=== PATIENT | female | born 1970 | race Caucasian/White ===

== ENCOUNTER 2022-01-12 08:43 | Emergency (ER) | payer MEDICAID ==
[~2022-01-12] VITALS: Ht 157.5 cm; Wt 52.0 kg
[2022-01-12 08:50] VITALS: BP 178/87
[2022-01-12] MEDS ORDERED: NAPR-1176 PO (09:41)
[2022-01-12] MEDS ORDERED: CYCL5TAB MT (09:41)
== END 2022-01-12 09:54 | disposition home or self-care (01) ==
LOC: ER 08:43
DX: S46.911A Strain of unspecified muscle, fascia and tendon at shoulder and upper arm level, right arm, initial encounter (principal); X58.XXXA Exposure to other specified factors, initial encounter; Y93.89 Activity, other specified; Y92.89 Other specified places as the place of occurrence of the external cause; Y99.8 Other external cause status
CPT/HCPCS: 81025; 99282

== ENCOUNTER 2023-04-30 04:51 | Inpatient (IN) | payer MEDICAID ==
[~2023-04-30] VITALS: Ht 154.9 cm; Wt 47.6 kg
[~2023-04-30 04:51] MED LIST: CYCL5TAB MT; NAPR-1176 PO
[2023-04-30 06:29] LABS: HEMATOCRIT. 39.4 % (36.0-48.0); HEMOGLOBIN. 13.2 g/dL (12.0-16.0); MEAN CORPUSCULAR HEMOGLOBIN 27.4 pg (28.0-32.0); MEAN CORPUSCULAR HGB CONC 33.5 g/dL (31.0-37.0); MEAN CORPUSCULAR VOLUME 81.6 fL (81.0-99.0); MEAN PLATELET VOLUME 7.9 fl (7.4-10.4); PLATELET 391 x1000/uL (130-400); RED BLOOD CELL COUNT 4.83 mill/uL (4.2-5.4); WHITE BLOOD COUNT 18.3 x1000/uL (4.5-11.0)
[2023-04-30] MEDS ORDERED: ONDANSETRON HCL 4MG/2ML INJ IV ONE (06:30)
[2023-04-30] MEDS ORDERED: SODIUM CHLORIDE 0.9% 1,000 ML IV ONE (06:30)
[2023-04-30] MEDS ORDERED: MORPHINE SULFATE 4 MG/ML CPJ (NOT FOR IM USE) IV ONE (06:30)
[2023-04-30 06:31] LABS: DIFFERENTIAL COMMENT 1
[2023-04-30 06:41] LABS: ALANINE AMINOTRANSFERASE 45 IU/L (10-49); ALBUMIN 4.3 g/dL (3.2-4.8); ASPARTATE AMINOTRANSFERASE 43 IU/L (<34); BILIRUBIN TOTAL 0.8 mg/dL (0.1-1.0); CALCIUM 9.1 mg/dL (8.7-10.4); CARBON DIOXIDE 21 mEq/L (21-32); CHLORIDE 102 mEq/L (98-107); CREATININE 0.8 mg/dL (0.6-1.0); GLUCOSE 109 mg/dL (70-105); POTASSIUM 3.1 mEq/L (3.5-5.1); PROTEIN TOTAL 7.7 g/dL (6.0-8.3); SODIUM 138 mEq/L (136-145); UREA NITROGEN BLOOD 16 mg/dL (9-23)
[2023-04-30 07:05] LABS: PARTIAL THROMBOPLASTIN TIME 25.9 sec (23.4-31.0); PROTHROMBIN TIME 10.7 sec (9.6-11.0)
[2023-04-30 07:46] LABS: PLATELET ESTIMATE NORMAL
[2023-04-30 07:48] LABS: LACTIC ACID 4.5 mmol/L (0.4-2.0)
[2023-04-30] MEDS ORDERED: PIPERACILLIN/TAZO 3.375G/50ML 50 ML IV SCH ×2 (08:00→14:00)
[2023-04-30] MEDS ORDERED: SODIUM CHLORIDE 0.9% 1,000 ML IV SCH (08:00)
[2023-04-30] MEDS ORDERED: KCL 20MEQ/100ML PREMIX 100 ML IV SCH (08:00)
[2023-04-30] MEDS ORDERED: IOHEXOL-300 100 ML BOTTLE ONE (11:28)
[2023-04-30] MEDS ORDERED: ONDANSETRON HCL 4MG/2ML INJ IV PRN (13:00)
[2023-04-30] MEDS ORDERED: KETOROLAC 15MG/ML VIAL IV PRN (13:00)
[2023-04-30] MEDS ORDERED: DEXT 5%/0.45% NACL KCL 10MEQ/L 1,000 ML IV SCH (13:30)
[2023-04-30 14:30] VITALS: BP 101/57; PULSE 112; RESP 18; TEMP 99.9
[2023-04-30] MEDS: PANTOPRAZOLE SODIUM 40 MG/VIAL IV SCH (16:21)
[2023-04-30] MEDS: ACETAMINOPHEN 650MG SUPP PR PRN ×2 (16:50→17:20)
[2023-04-30] MEDS: MIDODRINE HCL 5MG TABLET PO SCH (18:13)
[2023-04-30 20:00] VITALS: BP 70/34; PULSE 65; RESP 18; TEMP 97.9
[2023-04-30] MEDS ORDERED: SODIUM CHLORIDE 0.9% 1000ML BAG (SEPSIS BOLUS) IV ONE (20:45)
[2023-04-30] MEDS ORDERED: SODIUM CHLORIDE 0.9% 500 ML IV SCH (21:00)
[2023-04-30] MEDS: PIPERACILLIN/TAZO 3.375G/50ML 50 ML IV SCH (22:53)
[2023-05-01] VITALS (8 sets, daily range): BP systolic 71–118; BP diastolic 32–66; PULSE 56–93; RESP 16–18; TEMP 97.5–101.1
[2023-05-01 03:28] LABS: CLARITY URINE CLEAR (CLEAR); COLOR URINE YELLOW (YELLOW); GLUCOSE URINE NEGATIVE (NEGATIVE); KETONES URINE NEGATIVE (NEGATIVE); LEUKOCYTE ESTERASE URINE 2+ (NEGATIVE); NITRITE URINE NEGATIVE (NEGATIVE); OCCULT BLOOD URINE NEGATIVE (NEGATIVE); PROTEIN URINE TRACE (NEGATIVE); SPECIFIC GRAVITY URINE 1.021 (1.005-1.030); UROBILINOGEN URINE 0.2 E.U./dL (0.2-1.0)
[2023-05-01 04:36] LABS: WBC URINE 15-25 /hpf (0-2)
[2023-05-01 04:37] LABS: RBC URINE 0-2 /hpf (0-2)
[2023-05-01 04:38] LABS: BACTERIA URINE NONE SEEN; SQUAMOUS EPITHELIAL CELL URINE FEW /lpf (RARE/1+)
[2023-05-01] MEDS: DEXT 5%/0.45% NACL KCL 10MEQ/L 1,000 ML IV SCH ×2 (05:56→21:39)
[2023-05-01] MEDS: PIPERACILLIN/TAZO 3.375G/50ML 50 ML IV SCH ×3 (05:57→21:33)
[2023-05-01 08:10] LABS: HEMATOCRIT. 31.8 % (36.0-48.0); HEMOGLOBIN. 10.7 g/dL (12.0-16.0); MEAN CORPUSCULAR HGB CONC 33.5 g/dL (31.0-37.0); MEAN CORPUSCULAR VOLUME 80.5 fL (81.0-99.0); MEAN PLATELET VOLUME 8.4 fl (7.4-10.4); PLATELET 273 x1000/uL (130-400); RED BLOOD CELL COUNT 3.95 mill/uL (4.2-5.4); RED CELL DISTRIBUTION WIDTH 13.7 % (11.6-14.6); WHITE BLOOD COUNT 19.4 x1000/uL (4.5-11.0)
[2023-05-01 08:11] LABS: ALANINE AMINOTRANSFERASE 32 IU/L (10-49); ALBUMIN 3.1 g/dL (3.2-4.8); ASPARTATE AMINOTRANSFERASE 37 IU/L (<34); CALCIUM 7.2 mg/dL (8.7-10.4); CARBON DIOXIDE 21 mEq/L (21-32); CHLORIDE 109 mEq/L (98-107); CHOLESTEROL 111 mg/dL (<200); CREATININE 0.7 mg/dL (0.6-1.0); GLUCOSE 96 mg/dL (70-105); HDL CHOLESTEROL 25 mg/dL (>65); LDL CHOLESTEROL 65 mg/dL (5-100); POTASSIUM 2.9 mEq/L (3.5-5.1); SODIUM 140 mEq/L (136-145); TRIGLYCERIDE 129 mg/dL (0-150); UREA NITROGEN BLOOD 15 mg/dL (9-23)
[2023-05-01 08:27] LABS: DIFFERENTIAL COMMENT 1
[2023-05-01 08:45] LABS: PROTEIN TOTAL 5.4 g/dL (6.0-8.3)
[2023-05-01] MEDS: ACETAMINOPHEN 650MG SUPP PR PRN (09:06)
[2023-05-01] MEDS: PANTOPRAZOLE SODIUM 40 MG/VIAL IV SCH (09:07)
[2023-05-01] MEDS: MIDODRINE HCL 5MG TABLET PO SCH ×3 (09:08→17:00)
[2023-05-01] MEDS ORDERED: VANCOMYCIN 1G PREMIX 200 ML IV SCH (14:00)
[2023-05-01 20:31] LABS: PLATELET ESTIMATE NORMAL
[2023-05-02] VITALS: BP 113/55; PULSE 61; RESP 16; TEMP 97.3
[2023-05-02 04:00] VITALS: BP 107/47; PULSE 66; RESP 16; TEMP 97.6
[2023-05-02] MEDS: VANCOMYCIN 750MG PREMIX 150 ML IV SCH ×2 (04:32→17:23)
[2023-05-02] MEDS: DEXT 5%/0.45% NACL KCL 10MEQ/L 1,000 ML IV SCH ×2 (04:37→21:19)
[2023-05-02 06:25] LABS: BASOPHILS % 0.2 % (0.0-2.0); HEMATOCRIT. 31.7 % (36.0-48.0); HEMOGLOBIN. 10.8 g/dL (12.0-16.0); LYMPHOCYTES % 7.8 % (20.0-50.0); MEAN CORPUSCULAR HEMOGLOBIN 27.4 pg (28.0-32.0); MEAN CORPUSCULAR HGB CONC 33.9 g/dL (31.0-37.0); MEAN CORPUSCULAR VOLUME 80.9 fL (81.0-99.0); MEAN PLATELET VOLUME 8.4 fl (7.4-10.4); MONOCYTES % 4.3 % (2.0-8.0); NEUTROPHILS % 85.7 % (40.0-76.0); PLATELET 251 x1000/uL (130-400); RED BLOOD CELL COUNT 3.92 mill/uL (4.2-5.4); RED CELL DISTRIBUTION WIDTH 13.5 % (11.6-14.6); WHITE BLOOD COUNT 9.5 x1000/uL (4.5-11.0)
[2023-05-02 06:59] LABS: ALANINE AMINOTRANSFERASE 28 IU/L (10-49); ALBUMIN 3.3 g/dL (3.2-4.8); ASPARTATE AMINOTRANSFERASE 32 IU/L (<34); BILIRUBIN TOTAL 0.6 mg/dL (0.1-1.0); CALCIUM 7.7 mg/dL (8.7-10.4); CARBON DIOXIDE 21 mEq/L (21-32); CHLORIDE 111 mEq/L (98-107); CREATININE 0.7 mg/dL (0.6-1.0); GLUCOSE 94 mg/dL (70-105); SODIUM 142 mEq/L (136-145); UREA NITROGEN BLOOD 12 mg/dL (9-23)
[2023-05-02 08:00] VITALS: BP 126/70; PULSE 63; RESP 20; TEMP 98.8
[2023-05-02] MEDS: PIPERACILLIN/TAZO 3.375G/50ML 50 ML IV SCH ×3 (08:08→21:13)
[2023-05-02] MEDS: MIDODRINE HCL 5MG TABLET PO SCH ×3 (08:44→17:00)
[2023-05-02] MEDS: FAMOTIDINE 20MG/2ML VIAL IV SCH ×2 (08:44→21:13)
[2023-05-02] MEDS ORDERED: POTASSIUM CHLORIDE INJ 40 MEQ in DEXT 5% WATER 250 ML IV ONE (09:00)
[2023-05-02] MEDS: KCL 20MEQ/100ML X 2 FOR TOTAL KCL 40MEQ/200ML IV SCH ×2 (11:31→13:37)
[2023-05-02 12:00] VITALS: BP 100/60; PULSE 65; RESP 18; TEMP 98.2
[2023-05-02 16:00] VITALS: BP 134/72; PULSE 62; RESP 16; TEMP 97.5
[2023-05-02 20:00] VITALS: BP 125/64; PULSE 53; RESP 16; TEMP 97.1
[2023-05-03] VITALS: BP 100/53; PULSE 55; RESP 16; TEMP 97.1
[2023-05-03 04:00] VITALS: BP 108/50; PULSE 52; RESP 16; TEMP 97.5
[2023-05-03 04:20] LABS: BASOPHILS % 0.4 % (0.0-2.0); EOSINOPHILS % 4.1 % (0.0-5.0); HEMATOCRIT. 30.4 % (36.0-48.0); HEMOGLOBIN. 10.4 g/dL (12.0-16.0); LYMPHOCYTES % 18.8 % (20.0-50.0); MEAN CORPUSCULAR HEMOGLOBIN 27.3 pg (28.0-32.0); MEAN CORPUSCULAR HGB CONC 34.1 g/dL (31.0-37.0); MEAN CORPUSCULAR VOLUME 80.2 fL (81.0-99.0); MEAN PLATELET VOLUME 8.2 fl (7.4-10.4); MONOCYTES % 6.9 % (2.0-8.0); NEUTROPHILS % 69.8 % (40.0-76.0); PLATELET 241 x1000/uL (130-400); RED BLOOD CELL COUNT 3.79 mill/uL (4.2-5.4); RED CELL DISTRIBUTION WIDTH 13.3 % (11.6-14.6); WHITE BLOOD COUNT 6.1 x1000/uL (4.5-11.0)
[2023-05-03 04:36] LABS: ALANINE AMINOTRANSFERASE 24 IU/L (10-49); ALBUMIN 3.3 g/dL (3.2-4.8); ASPARTATE AMINOTRANSFERASE 23 IU/L (<34); BILIRUBIN TOTAL 0.6 mg/dL (0.1-1.0); CALCIUM 7.7 mg/dL (8.7-10.4); CARBON DIOXIDE 22 mEq/L (21-32); CHLORIDE 110 mEq/L (98-107); CREATININE 0.7 mg/dL (0.6-1.0); GLUCOSE 104 mg/dL (70-105); POTASSIUM 3.3 mEq/L (3.5-5.1); PROTEIN TOTAL 6.1 g/dL (6.0-8.3); SODIUM 142 mEq/L (136-145); UREA NITROGEN BLOOD 8 mg/dL (9-23)
[2023-05-03] MEDS: PIPERACILLIN/TAZO 3.375G/50ML 50 ML IV SCH (06:28)
[2023-05-03] MEDS: VANCOMYCIN 750MG PREMIX 150 ML IV SCH (06:28)
[2023-05-03 08:00] VITALS: BP 136/72; PULSE 53; RESP 18; TEMP 97.6
[2023-05-03] MEDS: MIDODRINE HCL 5MG TABLET PO SCH (09:00)
[2023-05-03] MEDS: FAMOTIDINE 20MG/2ML VIAL IV SCH (09:28)
[2023-05-03] MEDS: DEXT 5%/0.45% NACL KCL 10MEQ/L 1,000 ML IV SCH (09:29)
[2023-05-03 12:00] VITALS: BP 146/81; PULSE 60; RESP 18; TEMP 97.9
[2023-05-03] MEDS ORDERED: POTASSIUM CHLORIDE 20MEQ TABLET SR PO NR (12:00)
[2023-05-03 13:48] VITALS: BP 144/75; PULSE 65; TEMP 97.8; O2SAT 98
== END 2023-05-03 14:53 | disposition home or self-care (01) | DRG 720 ==
LOC: ER 04:51 → EDBEDREQ 09:22 → 6EST 10:57 → EDBEDREQ 11:03 → EDBEDREQTM 11:03 → 7EST 05-01 01:13
PROVIDERS: ADMIT Hospitalist; ATTEND Hospitalist
DX: A41.9 Sepsis, unspecified organism (principal); R65.21 Severe sepsis with septic shock; K52.9 Noninfective gastroenteritis and colitis, unspecified; E87.6 Hypokalemia; Z98.51 Tubal ligation status; B95.5 Unspecified streptococcus as the cause of diseases classified elsewhere
CPT/HCPCS: 36415; 74177; 80053; 80061; 80202; 81003; 83605; 83735; 84145; 85025; 86850; 86900; 87077; 87186; 99291; C9113; J1885; J2270; J2405; J2543; J3370; J3480; J3490; J7030; Q9967